=== PATIENT | female | born 1975 | race Caucasian/White ===

== ENCOUNTER 2022-05-20 13:10 | Emergency (ER) | payer BC ==
[2022-05-20] MEDS ORDERED: Lidocaine/Epineph/Tetracaine 3 ML Syringe TOP ONE (13:15)
[2022-05-20] MEDS ORDERED: Lidocaine 1% with EPINEPHrine 1:100,000 10 ML MDV INJECT ONE (13:30)
[2022-05-20] MEDS ORDERED: Diphtheria,Pertussis(Acell),Tetanus Vaccine 0.5 ML Syringe IM ONE (14:28)
== END 2022-05-20 14:23 ==
LOC: KA.ED 13:10
DX: S01.81XA Laceration without foreign body of other part of head, initial encounter (principal); S93.401A Sprain of unspecified ligament of right ankle, initial encounter; Z23 Encounter for immunization; W01.198A Fall on same level from slipping, tripping and stumbling with subsequent striking against other object, initial encounter
CPT/HCPCS: 12014; 90471; 90715; 99282; A9270

== ENCOUNTER 2022-08-20 09:13 | Emergency (ER) | payer OTHER, BC ==
[2022-08-20] MEDS: Ketorolac 30 MG/ML SDV IM ONE (10:00)
== END 2022-08-20 10:25 | disposition home or self-care (01) ==
LOC: KA.ED 09:13
DX: M54.42 Lumbago with sciatica, left side (principal); M70.62 Trochanteric bursitis, left hip; Z79.899 Other long term (current) drug therapy
CPT/HCPCS: 72100; 96372; 99283; 99284; J1885